=== PATIENT | female | born 1945 ===

== ENCOUNTER → 2020-06-26 | Outpatient (CLI) | payer MEDICARE ==
[~2020-06-26] MED LIST: COVID-19 VACCINE (PFIZER)/PF 30 MCG/0.3 ML VIAL IM ONE; EPINEPHRINE INJ/PF 1 MG/1 ML AMPULE IM PRN
--- OUTSIDE RECORDS SUMMARY | 2020-06-29 10:30 | XMS REPORT ---
:1945 [facility] [place] [address] [place] [id number] Care Team Providers Name Role Phone Unavailable Unavailable Unavailable Allergies, Adverse Reactions, Alerts This patient has no known allergies or adverse reactions. Medications Ordered Filled Start Stop Current Ordering Indication Dosage Frequency Signature Comments Components Medication Medication Date Date Medication? Clinician (SIG) Name Name prednisone No prednisone 5 mg tablet 5 mg tablet pregabalin No pregabalin 50 mg 50 mg capsule capsule ranitidine No ranitidine 150 mg 150 mg tablet tablet Restasis No Restasis 0.05 % eye 0.05 % eye drops in a drops in a dropperette dropperett e Santyl 250 No Santyl 250 unit/gram unit/gram topical topical ointment ointment Synthroid No Synthroid 150 mcg 150 mcg tablet tablet celecoxib No celecoxib 200 mg 200 mg capsule capsule citalopram No citalopram 20 mg 20 mg tablet tablet citalopram No citalopram 40 mg 40 mg tablet tablet dapsone 100 No dapsone mg tablet 100 mg tablet duloxetine No duloxetine 60 mg 60 mg capsule,del capsule,de ayed layed release release metformin No metformin 500 mg 500 mg tablet tablet nystatin No nystatin 100,000 100,000 unit/gram unit/gram topical topical powder powder omeprazole No omeprazole 20 mg 20 mg capsule,del capsule,de ayed layed release release oseltamivir No oseltamivi 75 mg r 75 mg capsule capsule Problems Condition Condition Condition Status Onset Resolution Last Treatin g Comments Name Details Category Date Date Treatment Clinician Date Foot pain Foot Pain Problem Active 10-13 00:00: 00 Procedures Procedure Date / Time Performed Performing Clinician Sarah e RADIOLOGIC EXAM FOOT 2 VIEWS 2019-10-16 00:00:00 Results This patient has no known results. Assessments Condition Name Status Diagnosis Date Treating Clinici an Foot pain Active 2019-10-14 14:07:02 Encounters Start End Encounter Admission Attending Care Care Encounter Date/Time Date/Time Type Type Clinicians Facility Department ID 2019-10-14 2019-10-14 Storm Hilliard [id number] 00:00:00 00:00:00 [facility] [id number] Poonam Perera MD: [id number] [facility] [address], [place] [address] , Ph. Social History Smoking Status Start Date Stop Date Unknown If Ever Smoked Vital Signs This patient has no known vital signs. Hospital Discharge Instructions 1. Foot pain XR, foot, 2 view Discussion Note: None recorded. Patient educational handouts: No information available.
== END ==
LOC: EMPHEALTH 15:16
PROVIDERS: ATTEND Internal Medicine
DX: Z23 Encounter for immunization (principal)
CPT/HCPCS: 91300